=== PATIENT | male | born 1965 | race Caucasian/White ===

== ENCOUNTER 2018-05-11 05:48 | Day surgery (SDC) | payer OTHER ==
[2018-05-11] MEDS ORDERED: PROPOFOL 200 MG INJ (07:00)
[2018-05-11 07:18] LABS: ADD MAN DIFF? NO
[2018-05-11 07:19] LABS: WHITE BLOOD COUNT 6.2 10^3/ul (4.8-10.8)
[2018-05-11 07:19] LABS: BASOPHIL # 0.1 10^3/ul (0.0-0.1); BASOPHILS % 0.8 % (0.0-2.0); EOSINOPHILS # 0.2 10^3/ul (0.0-0.5); EOSINOPHILS % 2.6 % (0.0-7.0); HEMATOCRIT 41.5 % (42.0-52.0); HEMOGLOBIN 14.1 g/dl (14.0-18.0); LYMPHOCYTES # 2.9 10^3/ul (0.8-2.9); MEAN CORPUSCULAR HEMOGLOBIN 29.7 pg (29.0-33.0); MEAN CORPUSCULAR VOLUME 87.6 fl (82.0-101.0); MEAN PLATELET VOLUME 10.6 fl (7.4-10.4); MONOCYTE # 0.7 10^3/ul (0.3-0.9); MONOCYTES % 10.5 % (0.0-11.0); NEUTROPHIL # 2.4 10^3/ul (1.6-7.5); NEUTROPHILS % 38.9 % (39.0-77.0); PLATELET COUNT 183 10^3/UL (140-415); RED BLOOD COUNT 4.74 10^6/ul (4.70-6.10); RED CELL DISTRIBUTION WIDTH 13.2 % (11.5-14.5)
[2018-05-11 07:22] LABS: PROTIME 12.2 Sec (11.9-14.9)
[2018-05-11 07:23] LABS: PARTIAL THROMBOPLASTIN TIME 27.1 Sec (25.0-35.0)
[2018-05-11 07:26] LABS: ALANINE AMINOTRANSFERASE 34 IU/L (13-69); ALBUMIN/GLOBULIN RATIO 1.21; ALKALINE PHOSPHATASE 82 IU/L (42-121); ANION GAP 11 (8-16); ASPARTATE AMINO TRANSFERASE 27 IU/L (15-46); BILIRUBIN,INDIRECT 1.1 mg/dl (0-1.1); BILIRUBIN,TOTAL 1.1 mg/dl (0.2-1.3); BLOOD UREA NITROGEN 16 mg/dl (7-20); CALCIUM 8.9 mg/dl (8.4-10.2); CARBON DIOXIDE 25 mmol/L (21-31); CHLORIDE 112 mmol/L (97-110); GLUCOSE 92 mg/dl (70-220); POTASSIUM 4.3 mmol/L (3.5-5.1); SODIUM 144 mmol/L (135-144); TOTAL PROTEIN 7.3 g/dl (6.1-8.1)
[2018-05-11] MEDS ORDERED: SOD CHLORIDE 0.9% 1,000 ML IV (08:00)
[2018-05-11] MEDS ORDERED: CEFAZOLIN 1 GM/50 ML (PMX) 50 ML IVPB (08:00)
[2018-05-11] MEDS ORDERED: FENTAnyl 50 MCG/ML VIAL (08:26)
[2018-05-11] MEDS ORDERED: ROPIVACAINE 0.5 % 30 ML VIAL (08:27)
[2018-05-11] MEDS ORDERED: SUGAMMADEX SODIUM 200 MG/2 ML VIAL IV (08:58)
[2018-05-11] MEDS ORDERED: CEFAZOLIN 1 GM INJ (08:58)
[2018-05-11] MEDS ORDERED: SUCCINYLCHOLINE CHLORIDE 100 MG/5 ML SYG IV (08:58)
[2018-05-11] MEDS ORDERED: LIDOCAINE 100 MG SYRINGE (08:58)
[2018-05-11] MEDS ORDERED: PROPOFOL 20 ML (08:58)
[2018-05-11] MEDS ORDERED: ROCURONIUM 50 MG INJ (08:58)
[2018-05-11] MEDS: POLYMYXIN/BACITRACIN 1L IRRIG (09:05)
[2018-05-11] MEDS ORDERED: FENTAnyl 50 MCG/ML VIAL IV ×3 (09:30)
[2018-05-11] MEDS ORDERED: DIPHENHYDRAMINE 50 MG INJ IV (09:30)
[2018-05-11] MEDS ORDERED: METOCLOPRAMIDE 10 MG INJ IV (09:30)
[2018-05-11] MEDS ORDERED: HYDROmorphONE 1 MG/5 ML IV SYRINGE IV ×3 (09:30)
[2018-05-11] MEDS ORDERED: ONDANSETRON 4 MG INJ IV (09:30)
[2018-05-11] MEDS ORDERED: MEPERIDINE 25 MG INJ IV (09:30)
[2018-05-11] MEDS ORDERED: HYDROCODONE/APAP (5/325) TAB PO (11:30)
[2018-05-11] MEDS: HYDROCODONE/APAP (5/325) TAB PO (12:47)
== END 2018-05-11 13:16 | disposition home or self-care (01) ==
LOC: SDS 05:48
DX: K40.90 Unilateral inguinal hernia, without obstruction or gangrene, not specified as recurrent (principal); E66.9 Obesity, unspecified; Z68.30 Body mass index [BMI] 30.0-30.9, adult
CPT/HCPCS: 49505; 80053; 85025; 85610; 85730

== ENCOUNTER 2018-07-25 10:16 | Day surgery (SDC) | payer OTHER ==
[~2018-07-25 10:16] MED LIST: CIPRO 400 MG/200 ML D5W IVPB; CIPROFLOXACIN 400 MG in D5W 200 ML IVPB; ONDANSETRON 4 MG INJ
[2018-07-25] MEDS ORDERED: LACTATED RINGER'S 1,000 ML IV (11:30)
[2018-07-25] MEDS ORDERED: FENTAnyl 50 MCG/ML VIAL (11:55)
[2018-07-25] MEDS ORDERED: METOCLOPRAMIDE 10 MG INJ (11:56)
[2018-07-25] MEDS ORDERED: MIDAZOLAM 1 MG/ML 2 ML INJ (11:56)
[2018-07-25] MEDS ORDERED: PROPOFOL 20 ML (11:56)
[2018-07-25] MEDS ORDERED: LIDOCAINE 2% (SDV) 5 ML INJ (11:56)
[2018-07-25] MEDS ORDERED: DIPHENHYDRAMINE 50 MG INJ IV (13:00)
[2018-07-25] MEDS ORDERED: HYDROmorphONE 1 MG/5 ML IV SYRINGE IV ×2 (13:00)
[2018-07-25] MEDS ORDERED: ONDANSETRON 4 MG INJ IV (13:00)
[2018-07-25] MEDS ORDERED: FENTAnyl 50 MCG/ML VIAL IV ×2 (13:00)
[2018-07-25] MEDS ORDERED: hydrALAzine 20 MG INJ IV (13:00)
[2018-07-25] MEDS ORDERED: KETOROLAC 30 MG INJ IV (13:00)
[2018-07-25] MEDS ORDERED: MEPERIDINE 25 MG INJ IV (13:00)
[2018-07-25] MEDS ORDERED: IPRATROPIUM (NEB) 0.5 MG/2.5 ML AMP HHN (13:00)
[2018-07-25] MEDS ORDERED: LABETALOL HCL 20MG INJ IV (13:00)
[2018-07-25] MEDS ORDERED: IOHEXOL 300MG/ML 30 ML BTL (13:04)
== END 2018-07-25 16:08 | disposition home or self-care (01) ==
LOC: SDS 10:16
DX: N20.1 Calculus of ureter (principal); N40.0 Benign prostatic hyperplasia without lower urinary tract symptoms
CPT/HCPCS: 52356; 74420; 88300